=== PATIENT | female | born 1975 | race Caucasian/White ===

== ENCOUNTER 2023-07-30 08:04 | Outpatient (CLI) | payer OTHER, SELFPAY ==
--- NOTE | ~2023-07-30 | CT_ITS ---
EXAMINATION: CT cervical spine wo con DATE: 07/30/2023 08:25 INDICATION: Cervical fusion. TECHNIQUE: Computed tomography (CT) of the cervical spine was performed without intravenous contrast. Automated exposure control and iterative reconstruction technique were employed. The dose-length pro duct was 292.67 mGy-cm. COMPARISON: None FINDINGS: There is 7 degrees levocurvature of cervical spine. There are changes of anterior fusion pr ocedure at C5-C6 with healed interbody bone graft, and anterior plate and screws. Vertebral body heig hts are normal. There is mildly decreased disc height at C6-C7. The following disc levels are specifi adilia discussed: C2-C3: There is mild bilateral uncovertebral joint osteoarthritis. There is mild bilateral facet join t osteoarthritis. There is no neural foraminal stenosis. There is no central canal stenosis. C3-C4: There is moderate bilateral uncovertebral joint osteoarthritis. There is mild bilateral facet joint osteoarthritis. There is mild bilateral neural foraminal stenosis. There is mild central canal stenosis. C4-C5: There is mild bilateral uncovertebral joint osteoarthritis. There is mild bilateral facet join t osteoarthritis. There is mild bilateral neural foraminal stenosis. There is mild central canal sten osis. C5-C6: There is moderate bilateral uncovertebral joint hypertrophy. There is moderate right and sever e left facet joint osteoarthritis. There is mild bilateral neural foraminal stenosis. There is mild c entral canal stenosis. C6-C7: There is mild bilateral uncovertebral joint osteoarthritis. There is severe bilateral facet carlos int osteoarthritis. There is mild right neural foraminal stenosis. There is mild central canal stenos is. C7-T1: There is no uncovertebral joint osteoarthritis. There is severe right and moderate left facet joint osteoarthritis. There is mild right neural foraminal stenosis. There is no central canal stenos is. IMPRESSION: 1. Anterior fusion procedure at C5-C6. 2. Mild cervical spondylosis. Reviewed, dictated and finalized at location E. OL CLERK
== END 2023-07-30 08:05 ==
PROVIDERS: PCP Nurse Practitioner; Visit Provider Nurse Practitioner
DX: Z98.1 Arthrodesis status (principal); M43.02 Spondylolysis, cervical region
CPT/HCPCS: 72125